=== PATIENT | female | born 1995 | race Caucasian/White ===

== ENCOUNTER 2016-07-25 16:56 | Emergency (ER) | payer OTHER ==
[~2016-07-25] VITALS: Ht 154.9 cm; Wt 54.5 kg
[2016-07-25 17:05] VITALS: BP 128/74; TEMP 100.9
[2016-07-25 17:47] LABS: INFLUENZA B NEGATIVE
[2016-07-25 18:30] VITALS: PULSE 68
== END 2016-07-25 18:30 | disposition home or self-care (01) ==
LOC: COL.ER 16:56
PROVIDERS: Physician Assistant
DX: J11.1 Influenza due to unidentified influenza virus with other respiratory manifestations (principal)